=== PATIENT | male | born 1955 | race Two or more races ===

== ENCOUNTER 2024-02-22 12:36 | Inpatient (IN) | payer OTHER ==
[~2024-02-22] VITALS: Ht 167.6 cm; Wt 83.5 kg
[2024-02-22] MEDS ORDERED: GRALISE600 MG (13:08)
[2024-02-22] MEDS ORDERED: ATORVASTATIN CA40 MG (13:08)
[2024-02-22] MEDS ORDERED: DILTIAZEM 24HR180 MG (13:08)
[2024-02-22] MEDS ORDERED: ZETIA10 MG (13:08)
[2024-02-22] MEDS ORDERED: PLAVIX75 MG (13:08)
--- NOTE | 2024-02-22 13:09 | NUR ---
PTE ALERTA Y ORIENTADO X3 REFIERE SANGRAOD ANAL DESDE HACE UNOS KEITA FUE REFERIDO POR DRA MC, GASTROENTEROLOGA. FRANCESCO ARREOLA EXAMEN REFIERE DOLOR EN EL ABDOMEN EN EL RLQ FRANCESCO PALPACION. SE LE DB S/V Y SE UBICA
[2024-02-22] MEDS ORDERED: PANTOPRAZOLE SODIUM 40 MG/VIAL VIAL IV STA (14:16)
[2024-02-22] MEDS ORDERED: 0.9 % SODIUM CHLORIDE 1,000 ML IV STA (14:17)
--- NOTE | 2024-02-22 15:15 | NUR ---
PTE ALERTA Y ORIENTADO X3 ES EVALUADAO POR EL DR. BABB. SE ORIENTA SOBRE TRATAMIENTO, VEBRALIZA ENTENDER. SE CANLIZA, SE COLECTAN MUESTRAS DE LAB Y SE ADMINISTRA MEDICAMENTO BETHANY ORDEN MEDICA BAJO MEDIDAS ASEPTICAS. RN Kirit SULLIVAN REQUISA 2 UNIDADES DE PRBC, COLECTA TUBOS PILOTOS Y SE ENVIAN A LABORATORIO. PTE FIRMA COSENTIMIENTO Y SE COLOCA EN RECORD. PENDINTE MANNY Y CT YA NOTIFICADO.
[2024-02-22 15:16] LABS: HEMATOCRIT 37.6 % (39.0-48.0); HEMOGLOBIN 12.8 g/dL (13-16.00); MEAN CELL VOLUME 82.9 fL (80.0-100.00); MEAN CORPUSCULAR HEMOGLOBIN 28.3 pg (27.00-32.0); MEAN CORPUSCULAR HGB CONC 34.1 g/dl (32.0-36.0); PLATELET COUNT 302 K/uL (150-450); RED BLOOD COUNT 4.53 M/uL (4.00-6.00); RED CELL DISTRIBUTION WIDTH 15.1 % (11.5-14.5)
[2024-02-22 15:37] LABS: INR 1.05; PARTIAL THROMBOPLASTIN TIME 26.9 SECONDS (22.0-34.0); PROTHROMBIN TIME 11.4 SECONDS (9.0-11.5)
[2024-02-22 15:44] LABS: ALBUMIN 3.6 gm/dL (3.4-5.0); BILIRUBIN TOTAL 0.77 mg/dL (0.3-1.2); CALCIUM 9.1 mg/dL (8.5-10.1); CREATININE SERUM 1.58 mg/dL (0.70-1.30); GFR 43.7; GLOBULINA 3.2 G/DL (2.4-3.5); POTASSIUM 4.03 mEq/L (3.5-5.1); TOTAL PROTEIN 6.8 gm/dL (6.4-8.2)
[2024-02-22 15:45] LABS: URINE APPEARANCE Clear; URINE BILIRRUBIN Negative (NEGATIVE); URINE BLOOD Negative; URINE COLOR Yellow; URINE GLUCOSE Negative (NEGATIVE); URINE KETONE Negative (NEGATIVE); URINE LEUKOCYTE Negative; URINE NITRATE Negative; URINE PROTEIN Negative (NEGATIVE)
[2024-02-22 15:51] LABS: URINE BACTERIA 6.1 uL (0.0-1933); URINE EPITHELIAL CELLS 1.5 uL (0.0-38.8); URINE WBC 3.1 uL (0.0-23.2)
[2024-02-22 16:07] LABS: URINE RBC 0.8 uL (0.0-20.8)
[2024-02-22 17:27] VITALS: BP 130/80
[2024-02-22] MEDS ORDERED: 0.9 % SODIUM CHLORIDE 1,000 ML IV SCH (18:00)
[2024-02-22] MEDS ORDERED: ONDANSETRON HCL 4 MG in 0.9 % SODIUM CHLORIDE 50 ML IV PRN (18:15)
[2024-02-22] MEDS ORDERED: PANTOPRAZOLE SODIUM 80 MG in 0.9 % SODIUM CHLORIDE 100 ML IV SCH (18:15)
[2024-02-22 21:08] LABS: ob NEGATIVE (NEGATIVE)
[2024-02-23 03:04] VITALS: BP 140/73; O2SAT 96
[2024-02-23 06:05] LABS: HEMATOCRIT 35.9 % (39.0-48.0); HEMOGLOBIN 11.9 g/dL (13-16.00); MEAN CELL VOLUME 84.7 fL (80.0-100.00); MEAN CORPUSCULAR HEMOGLOBIN 28.2 pg (27.00-32.0); MEAN CORPUSCULAR HGB CONC 33.3 g/dl (32.0-36.0); PLATELET COUNT 277 K/uL (150-450); RED BLOOD COUNT 4.23 M/uL (4.00-6.00); RED CELL DISTRIBUTION WIDTH 14.9 % (11.5-14.5)
[2024-02-23 06:34] LABS: PHOSPHOROUS 3.1 mg/dL (2.5-4.9)
[2024-02-23] MEDS ORDERED: ATORVASTATIN CALCIUM 40 MG TABLET PO SCH (09:00)
[2024-02-23] MEDS ORDERED: DILTIAZEM HCL 180 MG CAP.SR.24H PO SCH (09:00)
[2024-02-23 10:26] VITALS: BP 159/80; O2SAT 97
[2024-02-23] MEDS ORDERED: MIDAZOLAM HCL 2 MG/2 ML VIAL IV ONE (11:15)
[2024-02-23] MEDS ORDERED: fentaNYL CITRATE 50 MCG/ML AMPUL IV PUSH ONE (11:15)
[2024-02-23 18:05] VITALS: BP 118/76
[2024-02-24 02:28] VITALS: BP 149/86; O2SAT 98
[2024-02-24 08:48] LABS: HEMATOCRIT 34.8 % (39.0-48.0); HEMOGLOBIN 11.9 g/dL (13-16.00); MEAN CORPUSCULAR HGB CONC 34.1 g/dl (32.0-36.0); PLATELET COUNT 269 K/uL (150-450); RED BLOOD COUNT 4.09 M/uL (4.00-6.00)
[2024-02-24 09:46] VITALS: BP 132/70; O2SAT 97
== END 2024-02-24 14:33 | disposition home or self-care (01) | DRG 378 ==
LOC: ER 12:36 → MEDJ 19:22
PROVIDERS: Emergency Medicine; General Practice; ADMIT Internal Medicine; ATTEND Internal Medicine
PROC: BW21YZZ Computerized Tomography (CT Scan) of Abdomen and Pelvis using Other Contrast (ICD-10-PCS; 2024-02-22)
PROC: 0DJ08ZZ Inspection of Upper Intestinal Tract, Via Natural or Artificial Opening Endoscopic (ICD-10-PCS; principal; 2024-02-23)
DX: K92.1 Melena (principal); N17.9 Acute kidney failure, unspecified; K44.9 Diaphragmatic hernia without obstruction or gangrene; K29.60 Other gastritis without bleeding; K25.3 Acute gastric ulcer without hemorrhage or perforation; D64.9 Anemia, unspecified; I10 Essential (primary) hypertension